=== PATIENT | female | born 1980 | race Hispanic/Latino ===

== ENCOUNTER 2024-02-26 09:35 | Emergency (ER) | payer OTHER, SELFPAY ==
[2024-02-26 09:45] VITALS: BP 130/89
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
[2024-02-26 11:53] VITALS: BP 111/68
== END 2024-02-26 12:00 | disposition home or self-care (01) ==
LOC: EMR 09:35
PROVIDERS: EMERGENCY PHYSICIAN Emergency Medicine; FAMILY PHYSICIAN Family Medicine
DX: M79.644 Pain in right finger(s) (principal); M25.561 Pain in right knee; R07.89 Other chest pain; M79.89 Other specified soft tissue disorders; V49.40XA Driver injured in collision with unspecified motor vehicles in traffic accident, initial encounter; Y92.410 Unspecified street and highway as the place of occurrence of the external cause; E11.9 Type 2 diabetes mellitus without complications; L40.9 Psoriasis, unspecified; Z79.4 Long term (current) use of insulin; Z96.41 Presence of insulin pump (external) (internal)
CPT/HCPCS: 99284; 71046; 73140; 73564

== ENCOUNTER → 2024-04-24 11:50 | Outpatient (REF) | payer OTHER, SELFPAY | LOC: RAD 11:50 | PROVIDERS: ATTENDING PHYSICIAN Chiropractor; FAMILY PHYSICIAN Family Medicine | DX: M99.01 Segmental and somatic dysfunction of cervical region (principal) | CPT/HCPCS: 72052 ==

== ENCOUNTER → 2024-10-03 11:56 | Outpatient (REF) | payer OTHER, SELFPAY | LOC: RAD 11:56 | PROVIDERS: ATTENDING PHYSICIAN Chiropractor; FAMILY PHYSICIAN Family Medicine | DX: M99.07 Segmental and somatic dysfunction of upper extremity (principal) | CPT/HCPCS: 73030 ==

== ENCOUNTER → 2024-10-27 07:30 | Outpatient (REF) | payer OTHER, SELFPAY | LOC: MRI 3T 07:30 | PROVIDERS: ATTENDING PHYSICIAN Chiropractor; FAMILY PHYSICIAN Family Medicine | DX: M75.101 Unspecified rotator cuff tear or rupture of right shoulder, not specified as traumatic (principal) | CPT/HCPCS: 73221 ==